=== PATIENT | male | born 1980 | race Caucasian/White ===

== ENCOUNTER 2021-12-23 15:15 | Outpatient (CLI) | payer BC, OTHER | END 2021-12-23 15:16 | disposition home or self-care (01) | LOC: CSHCT 15:15 | PROVIDERS: ATTEND Otolaryngology Plastic Surgery within the Head & Neck | DX: R22.0 Localized swelling, mass and lump, head (principal); Z98.890 Other specified postprocedural states | CPT/HCPCS: 70491 ==